=== PATIENT | male | born 1960 | race Caucasian/White ===

== ENCOUNTER 2017-08-22 15:15 | Emergency (ER) | payer OTHER ==
--- NOTE | 2017-08-22 15:21 | ED Physician Documentation ---
General Adult - HISTORIAN Historian: patient - HPI Stated Complaint: swelling and redness in his feet Chief Complaint: Lower Extremity Problem Onset: days ago (4) Timing: still present Severity: moderate Further Comments: yes (He states Sunday they were outside for over 4 hours working in the pool and then he noticed swelling in his feet and ankles . he states he is not currently taking any of his home meds. he has had some nasuea since sunday . he did eat some yesterday. He does not check his blood sugars. He is not sure when the last time he took his meds was. he is in the process of switching dr offices. He also has some red areas on both arms. He is worried about his blood pressure being high, although he is not taking his medication for hypertension.) Last known Well Date: 08/20/17 Last Known Well Time: 09:00 Last known Well Code/Unknown Code: Known - ROS CONST: fever, sweating, weakness, chills EYES/ENT: none CVS/RESP: none GI/: nausea MS/SKIN/LYMPH: none NEURO/PSYCH: dizziness. denies: headache, fainting - PAST HX Past History: hypertension, other (DM, bi polar ) Other History: none Surgeries/Procedures: other (Mastectomy, kidney stone removal ) Immunizations: UTD Allergies/Adverse Reactions: Allergies Allergy/AdvReac Type Severity Reaction Status Date / Time No Known Allergies Allergy Verified 08/22/17 15:35 Home Medications: Ambulatory Orders Medication Instructions Recorded Duloxetine HCl [Duloxetine HCl] 300 mg PO DAILY 08/22/17 Esomeprazole Magnesium [Nexium] 1 tab PO DAILY 08/22/17 Gabapentin [Neurontin] 1 tab PO DAILY 08/22/17 Lisinopril/Hydrochlorothiazide 1 tab PO DAILY 08/22/17 [Zestoretic] Naproxen [Naprosyn] 1 tab PO BID 08/22/17 Propranolol HCl [Inderal] 1 tab PO DAILY 08/22/17 - SOCIAL HX Smoking History: cigarettes Alcohol Use: none Drug Use: none - FAMILY HX Family History: No - REVIEWED ASSESSMENTS Nursing Assessment Reviewed: Yes Vitals Reviewed: Yes Progress - Progress Progress: 1615: results discussed and plan. He is aware it is important he follow up with his PCP - DG General Adult Physical Exam - PHYSICAL EXAM GENERAL APPEARANCE: no distress EENT: eye inspection normal, ENT inspection normal, no signs of dehydration NECK: normal inspection RESPIRATORY: no resp distress, chest non-tender, breath sounds normal CVS: reg rate & rhythm, heart sounds normal, equal pulses ABDOMEN: soft, no organomegaly, normal bowel sounds, no abdominal bruit, no distension BACK: normal inspection SKIN: warm/dry, other (bilateral feet red. Mild edema (no pitting) no pain to touch . Pulses + ) NEURO: oriented X3, CN's nml as tested, motor nml, sensation nml, mood/affect nml, cognition normal Discharge Clincal Impression: Cellulitis and abscess of foot Referrals: Primary Doctor,No [Primary Care Provider] - 2 Days Comments: 1. Bactrim DS take 1 by mouth BID X 10 days 2. Keep feet elevated 3. Increase fluid intake 4. Start you scheduled meds back 5. Return to PCP to discuss elevated liver enzymes 6. Return to ER for increasing or added concerns. Condition: Stable Disposition: 01 HOME, SELF-CARE Decision to Admit: NO Date of Decison to Admit: 08/22/17 Decision Time: 16:30
[2017-08-22 15:35] VITALS: BP 150/102
[2017-08-22 16:05] LABS: BASOPHILS % 0.2 (0.0-1.5); EOSINOPHILS % 4.6 % (0.0-6.8); MEAN CORPUSCULAR HEMOGLOBIN 29.4 pg (28.0-34.0); MEAN CORPUSCULAR VOLUME 89.1 fl (80.0-100.0); MONOCYTES % 7.4 % (0.0-11.0); NEUTROPHILS # 6.2 # k/uL (1.4-7.7)
[2017-08-22 16:18] LABS: eGFR (African) > 60; eGFR (Non-African) > 60
== END 2017-08-22 16:30 | disposition home or self-care (01) ==
LOC: ED 15:15
DX: L03.116 Cellulitis of left lower limb (principal); L03.115 Cellulitis of right lower limb; L02.619 Cutaneous abscess of unspecified foot
CPT/HCPCS: 36415; 80053; 85025; 99283